=== PATIENT | female | born 2000 | race Hispanic/Latino ===

== ENCOUNTER 2021-12-08 15:47 | Inpatient (IN) | payer OTHER ==
[~2021-12-08 15:47] MED LIST: Bupivacaine 0.25% HCL 30 ML VIAL ONE
[2021-12-08 16:45] VITALS: BMI 38.4
[2021-12-08] MEDS ORDERED: hydrALAZINE 20 MG/ML VIAL SLOW IVP PRN (17:35)
[2021-12-08] MEDS ORDERED: Misoprostol 200 MCG TAB PR PRN (17:35)
[2021-12-08] MEDS ORDERED: Diphenoxylate HCl/Atropine Tablet PO PRN (17:35)
[2021-12-08] MEDS ORDERED: Ondansetron PF 4 MG/2 ML Vial IVP PRN (17:35)
[2021-12-08] MEDS ORDERED: Promethazine HCl 25 MG/ML VIAL IM PRN (17:35)
[2021-12-08] MEDS ORDERED: Lidocaine 1% (PF) 30 ML VIAL SC PRN (17:35)
[2021-12-08] MEDS ORDERED: Butorphanol Tartrate 1 MG/ML VIAL SLOW IVP PRN (17:35)
[2021-12-08] MEDS ORDERED: HYDROcodone/Acetaminophen 5/325 mg Tablet PO PRN (17:35)
[2021-12-08] MEDS ORDERED: Carboprost 250 MCG/ML AMP IM PRN (17:35)
[2021-12-08] MEDS ORDERED: Zolpidem Tartrate 5 MG TAB PO PRN (17:35)
[2021-12-08] MEDS ORDERED: Acetaminophen 500 MG TAB PO PRN (17:35)
[2021-12-08] MEDS ORDERED: Ibuprofen 800 MG TAB PO PRN (17:35)
[2021-12-08] MEDS ORDERED: NS w/ Oxytocin 30 units 500 ML IV SCH ×2 (17:45)
[2021-12-08] MEDS ORDERED: Lactated Ringer's 1,000 ML IV SCH (17:45)
[2021-12-08 18:08] LABS: Hemoglobin 13.4 g/dL (12.0-15.5); Mean Corpuscular HGB CONC 33.6 g/dL (32.0-36.0); Mean Corpuscular Hemoglobin 28.3 pg (27.0-33.0); Mean Corpuscular Volume 84.4 fl (81.6-98.3); Mean Platelet Volume 10.9 fl (7.4-10.4); Platelet Count 144 10x3/uL (150-450); RBC Distribution Width 14.6 % (11.5-14.5); Red Blood Cell (RBC) Count 4.73 10x6/uL (3.90-5.03); White Blood Cell (WBC) Count 9.2 10x3/uL (3.5-10.5)
[2021-12-08 18:09] LABS: ALT (SGPT) 16 U/L (8-55); AST (SGOT) 22 U/L (5-34); Albumin 3.3 g/dL (3.5-5.0); Alkaline Phosphatase 195 U/L (40-100); Anion Gap 14 mmol/L (10-20); BUN (Urea Nitrogen) 13 mg/dL (7.0-18.7); Bilirubin, Total 0.3 mg/dL (0.2-1.2); Calc. Creatinine Clearance 218 mL/min (70-130); Calcium 9.1 mg/dL (7.8-10.44); Carbon Dioxide 19 mmol/L (22-29); Chloride 108 mmol/L (98-107); Potassium 4.4 mmol/L (3.5-5.1); Protein, Total 6.3 g/dL (6.0-8.3); Sodium 137 mmol/L (136-145)
[2021-12-08 18:29] LABS: Hep B Surf Ag Non-Reactive S/CO (NonReactive); Syphilis Antibody Nonreactive (Nonreactive); Syphilis Antibody Index 0.07 S/CO (<1.00 Non-Reactive)
[2021-12-08 18:35] LABS: Glucose 57 mg/dL (70-105)
[2021-12-08 18:43] LABS: Bilirubin Neg (Negative); Blood, Urine 25 (Negative); Clarity Slightly Cloudy (Clear); Glucose, Urine (Dipstick) Normal (Negative); Ketone, Urine 5 mg/dL (Negative); Leukocyte 500 (Negative); Nitrite Negative (Negative); Protein, Urine (Dipstick) 500 mg/dl (Neg-Trace); Specific Gravity, Urine 1.015 (1.002-1.036); Urobilinogen Normal mg/dL (Less than 2)
[2021-12-08 18:56] LABS: HBSAg Index 0.14 S/CO (0-0.99)
[2021-12-08 18:57] LABS: RBC/HPF 0-3 HPF (0-3)
[2021-12-08 18:58] LABS: Bacteria/HPF 2+ HPF (None Seen); WBC/HPF Greater Than 50 HPF (0-3)
[2021-12-08 18:59] LABS: Transitional Epithelial 0-3 HPF (None Seen)
[2021-12-08 19:01] LABS: Creatinine, Urine 71.84 mg/dL (47-110)
[2021-12-08 19:06] LABS: SARS-CoV-2 NAA Rapid Test Not Detected (NotDetected)
[2021-12-09] MEDS ORDERED: Fentanyl 2 mcg/Bup 0.1% Cadd 100 ML ONE (07:16)
[2021-12-09] MEDS ORDERED: Lorazepam 2 MG/ML VIAL SLOW IVP PRN (08:29)
[2021-12-09] MEDS ORDERED: Labetalol HCl 100 MG/20 ML VIAL SLOW IVP PRN (08:29)
[2021-12-09] MEDS ORDERED: Calcium Gluc 4.6 MEQ/10 ML (100 MG/ML) SLOW IVP PRN (08:29)
[2021-12-09] MEDS ORDERED: hydrALAZINE 20 MG/ML VIAL SLOW IVP PRN (08:29)
[2021-12-09] MEDS ORDERED: Magnesium Sulfate 20 gm/500 ml 20 GM/500 ML BAG ONE (08:32)
[2021-12-09] MEDS ORDERED: Naloxone HCl 0.4 mg/ml Vial IVP PRN ×2 (08:59)
[2021-12-09] MEDS ORDERED: Hydrocerin (Eucerin) Cream 120 gm Jar TOP PRN (08:59)
[2021-12-09] MEDS ORDERED: Ondansetron PF 4 MG/2 ML Vial IVP PRN (08:59)
[2021-12-09] MEDS ORDERED: ePHEDrine Sulfate 50 MG/10 ML VIAL SLOW IVP PRN (08:59)
[2021-12-09] MEDS ORDERED: diphenhydrAMINE 50 MG/ML VIAL IVP PRN (08:59)
[2021-12-09] MEDS ORDERED: Promethazine HCl 25 MG/ML VIAL IM PRN (08:59)
[2021-12-09] MEDS ORDERED: Acetaminophen 325 MG TAB PO PRN (08:59)
[2021-12-09] MEDS ORDERED: Lactated Ringer's 500 ML IV PRN (08:59)
[2021-12-09] MEDS ORDERED: Communication Order-Pharmacy FS SCH (09:00)
[2021-12-09] MEDS ORDERED: Fentanyl 2 mcg/Bupivacaine 0.1% Cassette 100 ML EPIDURAL SCH (09:00)
[2021-12-09] MEDS: Magnesium Sulfate 20 gm/500 ml 20 GM/500 ML BAG IVPB SCH (18:24)
[2021-12-10] MEDS: Magnesium Sulfate 20 gm/500 ml 20 GM/500 ML BAG IVPB SCH (06:16)
[2021-12-10] MEDS ORDERED: Milk Of Magnesia 30 ML UDCUP PO PRN (13:40)
[2021-12-10] MEDS ORDERED: hydrALAZINE 20 MG/ML VIAL SLOW IVP PRN (13:40)
[2021-12-10] MEDS ORDERED: Lanolin Ointment 7 GM TUBE TOP PRN (13:40)
[2021-12-10] MEDS ORDERED: Benzocaine-Menthol 82.5 ML CAN TOP PRN (13:40)
[2021-12-10] MEDS ORDERED: Bisacodyl 10 MG SUPP PR PRN (13:40)
[2021-12-10] MEDS ORDERED: Boostrix 0.5 ML (Tdap) VIAL IM ONE (13:40)
[2021-12-10] MEDS: Ibuprofen 800 MG TAB PO SCH ×2 (15:39→21:15)
[2021-12-10] MEDS: Ferrous Sulfate 325 MG TAB PO SCH (17:12)
[2021-12-10] MEDS: Labetalol HCl 100 MG TAB PO SCH (21:14)
[2021-12-10] MEDS: Docusate 100 MG CAP PO SCH (21:14)
[2021-12-11] MEDS: Ibuprofen 800 MG TAB PO SCH ×3 (05:58→21:33)
[2021-12-11 06:18] LABS: #Monocytes 0.6 10x3/uL (0.0-1.1); %Basophils 0.1 % (0.0-2.0); %Eosinophils 0.4 % (0.0-6.0); %Lymphocytes 18.8 % (18.0-47.0); %Monocytes 8.6 % (0.0-10.0); %Neutrophils 71.5 % (40.0-75.0); Hemoglobin 9.5 g/dL (12.0-15.5); Mean Corpuscular HGB CONC 32.9 g/dL (32.0-36.0); Mean Corpuscular Hemoglobin 28.4 pg (27.0-33.0); Mean Corpuscular Volume 86.5 fl (81.6-98.3); Mean Platelet Volume 10.3 fl (7.4-10.4); Platelet Count 128 10x3/uL (150-450); RBC Distribution Width 15.3 % (11.5-14.5); Red Blood Cell (RBC) Count 3.34 10x6/uL (3.90-5.03)
[2021-12-11 06:26] LABS: ALT (SGPT) 12 U/L (8-55); AST (SGOT) 16 U/L (5-34); Albumin 2.5 g/dL (3.5-5.0); Alkaline Phosphatase 115 U/L (40-100); Anion Gap 15 mmol/L (10-20); BUN (Urea Nitrogen) 9 mg/dL (7.0-18.7); Bilirubin, Total 0.2 mg/dL (0.2-1.2); Calc. Creatinine Clearance 221 mL/min (70-130); Calcium 8.4 mg/dL (7.8-10.44); Carbon Dioxide 21 mmol/L (22-29); Chloride 109 mmol/L (98-107); Globulin 2.6 g/dL (2.4-3.5); Glucose 65 mg/dL (70-105); Potassium 3.9 mmol/L (3.5-5.1); Protein, Total 5.1 g/dL (6.0-8.3); Sodium 141 mmol/L (136-145)
[2021-12-11] MEDS: Prenatal Vitamin 1 TAB PO SCH (08:49)
[2021-12-11] MEDS: Docusate 100 MG CAP PO SCH ×2 (08:49→21:29)
[2021-12-11] MEDS: Ferrous Sulfate 325 MG TAB PO SCH ×2 (08:49→18:04)
[2021-12-11] MEDS: Labetalol HCl 100 MG TAB PO SCH ×2 (08:50→21:33)
[2021-12-12] MEDS: Ibuprofen 800 MG TAB PO SCH (05:29)
[2021-12-12] MEDS: Prenatal Vitamin 1 TAB PO SCH (09:31)
[2021-12-12] MEDS: Docusate 100 MG CAP PO SCH (09:31)
[2021-12-12] MEDS: Labetalol HCl 100 MG TAB PO SCH (09:31)
[2021-12-12] MEDS: Ferrous Sulfate 325 MG TAB PO SCH (09:31)
[2021-12-12 11:25] VITALS: BP 131/65; TEMP 98.6
== END 2021-12-12 12:35 | disposition home or self-care (01) | DRG 807 ==
LOC: CSHLD/OP 15:47 → CSHLD 16:15 → CSHPP 12-10 16:00
PROVIDERS: ADMIT Student in an Organized Health Care Education/Training Program; ATTEND Student in an Organized Health Care Education/Training Program
PROC: 10E0XZZ Delivery of Products of Conception, External Approach (ICD-10-PCS; principal; 2021-12-09)
PROC: 0UQMXZZ Repair Vulva, External Approach (ICD-10-PCS; 2021-12-09)
PROC: 10907ZC Drainage of Amniotic Fluid, Therapeutic from Products of Conception, Via Natural or Artificial Opening (ICD-10-PCS; 2021-12-09)
DX: O14.14 Severe pre-eclampsia complicating childbirth (principal); Z37.0 Single live birth; O24.420 Gestational diabetes mellitus in childbirth, diet controlled; Z3A.38 38 weeks gestation of pregnancy; Z79.899 Other long term (current) drug therapy; O76 Abnormality in fetal heart rate and rhythm complicating labor and delivery; O71.82 Other specified trauma to perineum and vulva; D50.9 Iron deficiency anemia, unspecified; Z20.822 Contact with and (suspected) exposure to COVID-19; O90.81 Anemia of the puerperium
CPT/HCPCS: 36415; 36416; 51702; 80053; 81001; 82570; 84156; 85025; 85027; 86780; 86850; 86900; 86901; 87340; J0595; J2590; J3475; S0020; U0002